=== PATIENT | female | born 1990 | race Caucasian/White ===

== ENCOUNTER → 2022-12-26 | Emergency (ER) | payer BC, OTHER ==
[~2022-12-26] VITALS: Ht 162.6 cm; Wt 74.5 kg
[2022-12-27 00:49] VITALS: BP 131/76
== END | disposition left against medical advice (07) ==
LOC: ER 20:57
DX: J34.89 Other specified disorders of nose and nasal sinuses (principal); Z53.21 Procedure and treatment not carried out due to patient leaving prior to being seen by health care provider
CPT/HCPCS: 70486